=== PATIENT | male | born 1945 | race Caucasian/White ===

== ENCOUNTER 2017-07-27 09:00 | Outpatient (CLI) | payer OTHER ==
[~2017-07-27 09:00] MED LIST: GADOBUTROL 10 MMOL/10 ML VIAL ONE
[2017-07-27 09:32] LABS: CREATININE 1.1 mg/dL (0.6-1.2)
[2017-07-27] MEDS ORDERED: GADOBUTROL 10 MMOL/10 ML VIAL IVP ONE (10:51)
--- NOTE | 2017-07-27 17:52 | MRI Report ---
EXAM: MRI LUMBAR SPINE WITHOUT AND WITH CONTRAST EXAM DATE: 07/27/2017 10:56 AM. CLINICAL HISTORY: Increasing Low back pain with possible neurogenic claudication. COMPARISONS: None. TECHNIQUE: Multiplanar, multisequence T1-weighted and fluid-sensitive sequences of the lumbar spine f rom T12 to S1 before and after administration of intravenous contrast. Other: None. IV contrast: 10 m L Gadavist. FINDINGS: There is straightening of the normal lumbar lordosis. The conus terminates at the mid L1 vertebral gomez dy level and is normal. There is desiccation of the disk spaces from L2-L3 through L5-S1. There is a mild decrease in the hei ght of the disk at L2-L3, mild to moderate at L3-L4, L4-L5, and L5-S1. There is endplate spondylosis throughout the lumbar spine. There is a mixture of Modic type I and type II endplate degenerative toney nge within the L1-L2 through L5-S1 endplates. There is a small amount of fluid intensity in the superficial space of the lower back likely represen ting a small amount of dependent edema. The abdominal aorta is of normal caliber. There is a mild degree of atrophy of the paraspinal muscula ture and minimal of the psoas musculature. The kidneys are without evidence of hydronephrosis. L2-L3: There is a small disk osteophyte complex producing a mild central canal stenosis. There is min imal left and mild right facet arthropathy. There is mild to moderate right and mild left neural fora rani narrowing. L3-L4: There is a small disk osteophyte complex with superimposed central extrusion of the disk with annular tear producing a mild to moderate central canal stenosis. There is a mild degree of hypertrop hy of the fat in the posterior epidural space. There is mild bilateral facet arthropathy. There is mi ld to moderate right and left neural foraminal narrowing. L4-L5: There is a minimal disk osteophyte complex abutting the sac. There is a mild central canal madie nosis. There is minimal bilateral facet arthropathy. There is mild neural foraminal narrowing bilater ally. L5-S1: There is a small disk osteophyte complex with minimal central protrusion of the disk abutting the sac. There is mild degree of hypertrophy of the fat in the lateral and posterior epidural space c onsistent with areas of epidural lipomatosis. There are surgical changes of a left hemilaminotomy. Th ere is no significant central canal stenosis. There is mild to moderate neural foraminal narrowing bi laterally. The postcontrast T1-weighted images are normal. IMPRESSION: 1. There are surgical changes of a left hemilaminotomy at L5-S1. There is a small disk osteophyte com plex with minimal central protrusion of the disk abutting the sac without significant central canal s tenosis. There is hypertrophy of the fat in the anterior and posterior epidural space consistent with areas of epidural lipomatosis. 2. There is a minimal disk osteophyte complex producing a mild central canal stenosis at L4-L5. 3. There is a small disk osteophyte complex at L3-L4 with superimposed central extrusion of the disk with annular tear producing a mild to moderate central canal stenosis. There is a mild degree of epid ural lipomatosis of the posterior epidural space. 4. There is a mild central canal stenosis from a small disk osteophyte complex at L2-L3. Comment: The following findings are so common in adults without low back pain that while we report th eir presence, they must be interpreted with caution and in the context of the clinical situation. (Re parminder Cheema et al, Spine 2001) Prevalence of findings in patients without low back pain: Disk degeneration (any evidence): 92% Disk desiccation/T2 signal loss: 83% Disk height loss: 56% Disk bulge: 64% Disk protrusion: 32% Annular tear/high intensity zone: 38% [facility] Referring Provider Line: [phone] SITE ID: [id number]
== END 2017-07-27 09:01 | disposition home or self-care (01) ==
LOC: LAB 09:00
PROVIDERS: ATTEND Internal Medicine
DX: Z01.812 Encounter for preprocedural laboratory examination (principal); M48.061 Spinal stenosis, lumbar region without neurogenic claudication; M48.07 Spinal stenosis, lumbosacral region; M51.27 Other intervertebral disc displacement, lumbosacral region
CPT/HCPCS: 36415; 72158; 82565; A9585